=== PATIENT | female | born 1985 | race Two or more races ===

== ENCOUNTER 2024-11-05 01:33 | Inpatient (IN) | payer OTHER ==
[~2024-11-05] VITALS: Ht 157.5 cm; Wt 72.1 kg
[2024-11-05] VITALS (7 sets, daily range): BP systolic 112–126; BP diastolic 63–75; O2SAT 100
[2024-11-05] MEDS ORDERED: AMPICILLIN SODIUM 2,000 MG VIAL IV ONE (01:45)
[2024-11-05] MEDS ORDERED: BETAMETHASONE ACETATE,SOD PHOS 30 MG/5 ML ML IM ONE (01:45)
[2024-11-05] MEDS ORDERED: RINGERS SOLUTION,LACTATED 1,000 ML IV SCH (01:45)
[2024-11-05] MEDS ORDERED: PRENATAL TABLE1 EAC1 PO (02:09)
[2024-11-05 02:36] LABS: BASO % 0.4 % (0.1-1.2); EOS % 0.8 % (0.7-7.0); HEMATOCRIT 34.9 % (34.1-44.9); HEMOGLOBIN 11.9 g/dL (11.2-15.7); LYMPH # 2.43 (1.18-3.74); LYMPH % 19.9 % (19.3-53.1); MEAN CORPUSCULAR HEMOGLOBIN 29.4 pg (25.6-32.2); MONO # 1.18 (0.24-0.82); MONO % 9.7 % (4.7-12.5); NEUT # 8.26 (1.56-6.13); NEUT % 67.6 % (34.0-71.1); PLATELET COUNT 244 K/uL (163-369); RED BLOOD COUNT 4.05 M/uL (3.93-5.22); RED CELL DISTRIBUTION WIDTH 15.4 % (11.6-14.4)
[2024-11-05] MEDS ORDERED: MORPHINE SULFATE 4 MG/ML CARTRIDGE IV PRN (02:45)
[2024-11-05 02:59] LABS: BILIRUBIN TOTAL 0.28 mg/dL (0.3-1.2); CALCIUM 9.5 mg/dL (8.5-10.1); CREATININE SERUM 0.36 mg/dL (0.55-1.02); GFR 203.95; GLOBULINA 3.8 G/DL (2.4-3.5); POTASSIUM 3.82 mEq/L (3.5-5.1); TOTAL PROTEIN 6.8 gm/dL (6.4-8.2)
[2024-11-05 03:12] LABS: INR 0.94; PARTIAL THROMBOPLASTIN TIME 25.8 SECONDS (22.0-34.0); PROTHROMBIN TIME 10.3 SECONDS (9.0-11.5)
[2024-11-05] MEDS ORDERED: AMPICILLIN SODIUM 1,000 MG VIAL IV SCH (05:00)
[2024-11-05] MEDS ORDERED: PNV,CALCIUM 72/IRON/FOLIC ACID 1 TAB TABLET PO SCH (21:26)
[2024-11-05] MEDS ORDERED: OXYTOCIN 1,000 ML IV SCH (21:30)
[2024-11-05] MEDS ORDERED: CHLORHEXIDINE GLUCONATE 120 ML BOTTLE TP SCH (21:30)
[2024-11-05] MEDS ORDERED: IBUprofen 400 MG TABLET PO PRN (21:30)
[2024-11-05] MEDS ORDERED: ERYTHROMYCIN BASE OPHT 1GM EACH TUBE OP ONE (22:15)
[2024-11-05] MEDS ORDERED: LIDOCAINE HCL 1% 10ML VIAL PERCUT ONE (22:15)
[2024-11-06 01:16] VITALS: BP 100/62
[2024-11-06 08:13] VITALS: BP 113/70; O2SAT 99
[2024-11-06 08:38] LABS: BASO % 0.2 % (0.1-1.2); EOS # 0.03 (0.04-0.54); EOS % 0.2 % (0.7-7.0); HEMATOCRIT 31.2 % (34.1-44.9); HEMOGLOBIN 10.5 g/dL (11.2-15.7); LYMPH # 2.05 (1.18-3.74); LYMPH % 11.1 % (19.3-53.1); MEAN CORPUSCULAR HEMOGLOBIN 29.5 pg (25.6-32.2); MONO # 1.96 (0.24-0.82); MONO % 10.6 % (4.7-12.5); NEUT # 14.23 (1.56-6.13); NEUT % 76.8 % (34.0-71.1); PLATELET COUNT 245 K/uL (163-369); RED BLOOD COUNT 3.56 M/uL (3.93-5.22); RED CELL DISTRIBUTION WIDTH 15.5 % (11.6-14.4)
[2024-11-06] MEDS ORDERED: DOCUSATE SODIUM 100MG CAP PO SCH (09:00)
[2024-11-06 12:28] VITALS: BP 109/71
[2024-11-07 00:29] VITALS: BP 103/64
[2024-11-07 06:09] VITALS: BP 101/61
[2024-11-07 08:00] VITALS: BP 97/57
[2024-11-07 15:48] VITALS: BP 110/72
[2024-11-08 00:20] VITALS: BP 119/75
[2024-11-08 04:57] VITALS: BP 100/65
[2024-11-08 09:01] VITALS: BP 105/70; O2SAT 99
== END 2024-11-08 18:15 | disposition home or self-care (01) | DRG 805 ==
LOC: OB/GYN 01:33 → LDR 01:33 → OB/GYN 23:41
PROVIDERS: ADMIT Obstetrics & Gynecology Gynecology; ATTEND Obstetrics & Gynecology Gynecology
PROC: 10E0XZZ Delivery of Products of Conception, External Approach (ICD-10-PCS; principal; 2024-11-05)
PROC: 0UQG7ZZ Repair Vagina, Via Natural or Artificial Opening (ICD-10-PCS; 2024-11-05)
PROC: 4A1HXCZ Monitoring of Products of Conception, Cardiac Rate, External Approach (ICD-10-PCS; 2024-11-05)
DX: O71.4 Obstetric high vaginal laceration alone (principal); O60.14X0 Preterm labor third trimester with preterm delivery third trimester, not applicable or unspecified; O69.81X0 Labor and delivery complicated by cord around neck, without compression, not applicable or unspecified; Z3A.36 36 weeks gestation of pregnancy; Z37.0 Single live birth